=== PATIENT | female | born 1950 | race Caucasian/White ===

== ENCOUNTER 2018-07-22 16:46 | Inpatient (IN) | payer MEDICARE ==
[~2018-07-22 16:46] MED LIST: Dexamethasone 20 MG/5 ML VIAL ONE; Glycopyrrolate 0.2 MG/ML 5 ML SYRINGE ONE; Lidocaine 1% PF 5 ML VIAL ONE; Ondansetron PF 4 MG/2 ML Vial ONE; PHENYLEPHRINE-NS 100 MCG/ML 10 ML SYRINGE ONE; PROPOFOL 200 MG/20 ML VIAL ONE; Succinylcholine Chloride 20 MG/ML 10 ml SYRINGE FS ONE; ePHEDrine/0.9% NaCl/PF SYRINGE 50 mg/10 ml ONE
[2018-07-22] MEDS ORDERED: Fentanyl 100 MCG/2 ML VIAL ONE (17:43)
[2018-07-22] MEDS ORDERED: cefOXitin 2 GM VIAL ONE (17:54)
[2018-07-22] MEDS ORDERED: Sodium Chloride 0.9% 100 ML ONE (17:54)
[2018-07-22] MEDS ORDERED: Morphine 4 MG/ML VIAL ONE (17:54)
[2018-07-22] MEDS ORDERED: Bupivacaine/Epinephrine 0.25% 30 ML VIAL ONE (18:03)
[2018-07-22] MEDS ORDERED: Bupivacaine PF 0.5% 30 ML VIAL ONE (18:03)
[2018-07-22] MEDS ORDERED: Promethazine HCl 25 MG/ML VIAL SLOW IVP PRN (20:16)
[2018-07-22] MEDS ORDERED: Ondansetron HCl/PF 4 MG/2 ML Vial IVP PRN (20:16)
[2018-07-22] MEDS ORDERED: Promethazine HCl 25 MG/ML VIAL IM PRN (20:16)
[2018-07-22] MEDS ORDERED: Morphine 2 MG/ML SYRINGE SLOW IVP PRN (20:30)
[2018-07-22] MEDS ORDERED: Morphine 4 MG/ML VIAL SLOW IVP PRN (20:33)
--- NOTE | 2018-07-22 20:33 | HP ---
CHIEF COMPLAINT: Abdominal pain. HISTORY OF PRESENT ILLNESS: Ms. Lew is a 68-year-old woman, who presented to her local emergency room with a 2-day history of abdominal pain, nausea, and vomiting. She has had low-grade fevers up to 99.8 and has not had a bowel movement for 3 days. She does suffer from chronic constipation. She states that her last bowel movement 3 days ago was abnormal and that it was loose and runny. She underwent a CT scan, which showed an incarcerated left inguinal hernia with high-grade small bowel obstruction and was transferred to [place] for further care. She states that she has not really had any pain in her groin, but she can tell that there is something there. PAST MEDICAL HISTORY: None. PAST SURGICAL HISTORY: Splenectomy status post trauma, laparoscopic cholecystectomy, and tubal ligation. She has also had bilateral knee and shoulder surgery as well as carpal tunnel. SOCIAL HISTORY: The patient is a former smoker having quit 4 years ago. She does not drink or use illicit drugs. FAMILY HISTORY: Breast cancer in 2 cousins and Alzheimer's. MEDICATIONS: 1. Protonix. 2. Prozac. 3. Adderall. 4. Hyal-dxs-takcnoo allergy medication. ALLERGIES: SHE HAS NO KNOWN DRUGS ALLERGIES. REVIEW OF SYSTEMS: A 10-system review of systems was negative except as per HPI. PHYSICAL EXAMINATION: VITAL SIGNS: Currently afebrile with normal vital signs. GENERAL: Reveals a thin woman, in no acute distress. She is not flushed or toxic in appearance. She is not jaundiced or icteric. HEENT: Unremarkable. NECK: Supple without lymphadenopathy or thyroid nodules. HEART: Regular rate and rhythm without murmurs, rubs, or gallops. LUNGS: Clear to auscultation bilaterally. ABDOMEN: Soft, but diffusely tender and slightly distended with decreased bowel sounds. She has a firm left inguinal hernia, which is slightly tender; attempts to reduce it at the bedside were not successful. Healed upper midline incision and laparoscopic incisions. No other abdominal hernias or possible masses. EXTREMITIES: Warm and well perfused without edema. NEUROLOGIC: No focal deficits. PSYCHIATRIC: Alert, oriented, and appropriate. LABORATORY DATA: White count is mildly elevated at 12.1, hematocrit 46, platelets 359. Electrolytes are unremarkable. BUN and creatinine are mildly elevated at 33 and 1.22. LFTs and troponins are normal. CT images are reviewed, and I agree with the written report. The patient appears to have a loop of small intestine in the left inguinal canal with decompression past that point. ASSESSMENT: Incarcerated left inguinal hernia containing small bowel resulting in obstruction. I was unable to reduce this at the bedside, so we will take her emergently to the operating room tonight for left inguinal hernia repair, possible small bowel resection, possible laparotomy or laparoscopy if the viability of the bowel is in question. The procedure and its inherent risks were discussed with the patient and her family. These risks include, but are not limited to, bleeding, infection, risks of anesthesia, damage to nearby structures including blood vessels, nerves, and intestine. If a small bowel resection is performed, then anastomotic leak is also possible, although rare. If the bowel appears viable and is reduced, then stricture at a later date is a possibility if the damage is more extensive than recognized. The patient understands the inherent risks of the surgery and wishes to proceed. Broad-spectrum antibiotics covering bowel es have been ordered, and she has been posted emergently for the operating room. All of her questions were answered. Job ID: [id number] [facility]
[2018-07-22] MEDS ORDERED: Acetaminophen 1,000 MG in Premix Bag 1 BAG IVPB PRN (20:35)
[2018-07-22] MEDS ORDERED: Ketorolac Tromethamine 30 MG/ML VIAL IVP PRN (20:37)
[2018-07-22] MEDS ORDERED: Ondansetron PF 4 MG/2 ML Vial SLOW IVP PRN (20:39)
[2018-07-22] MEDS: D5 1/2 NS w/20 mEq KCL 1,000 ML IV SCH (21:16)
[2018-07-22] MEDS ORDERED: Chloraseptic Spray 180 ml Bottle PO PRN (21:36)
[2018-07-22] MEDS: Pantoprazole 40 MG VIAL IVP SCH (21:44)
[2018-07-23 01:41] VITALS: BMI 23.6
[2018-07-23] MEDS ORDERED: cefOXitin Sodium/Dextrose,Iso 1 GM in Premix Bag 1 BAG IVPB SCH (02:00)
[2018-07-23] MEDS: cefOXitin Sodium/Dextrose,Iso 1 GM in Premix Bag 1 BAG IVPB SCH ×2 (04:48→11:50)
[2018-07-23] MEDS: D5 1/2 NS w/20 mEq KCL 1,000 ML IV SCH ×2 (05:49→15:45)
[2018-07-23 06:12] LABS: Anion Gap 12 mmol/L (10-20); BUN (Urea Nitrogen) 22 mg/dL (9.8-20.1); Calc. Creatinine Clearance 49 mL/min (70-130); Calcium 8.3 mg/dL (7.8-10.44); Carbon Dioxide 27 mmol/L (23-31); Chloride 98 mmol/L (98-107); Estimated GFR-MDRD 48; Glucose 109 mg/dL (80-115); Potassium 4.1 mmol/L (3.5-5.1); Sodium 133 mmol/L (136-145)
[2018-07-23 07:12] LABS: #Lymphocytes 1.8 thou/uL (1.20-3.40); #Monocytes 1.6 thou/uL (0.11-0.59); #Neutrophils 8.9 thou/uL (1.40-6.50); %Basophils 0.1 % (0.0-1.0); %Eosinophils 0.1 % (0.0-10.0); %Lymphocytes 14.9 % (21.0-51.0); %Monocytes 12.6 % (0.0-10.0); %Neutrophils 72.2 % (42.0-75.0); Hemoglobin 12.2 g/dL (12.0-16.0); Mean Corpuscular HGB CONC 33.3 g/dL (32.0-36.0); Mean Corpuscular Volume 99.1 fL (78.0-98.0); Mean Platelet Volume 6.1 fL (7.4-10.4); Platelet Count 320 thou/uL (130-400); RBC Distribution Width 11.6 % (11.5-14.5); Red Blood Cell (RBC) Count 3.72 mill/uL (4.20-5.40); White Blood Cell (WBC) Count 12.3 thou/uL (4.8-10.8)
--- NOTE | 2018-07-23 18:58 | PDOC.OP ---
Operative Note - Operative Note Operative Note: PROCEDURE: Inguinal hernia repair SURGEON: Zaki Euceda M.D. DATE OF PROCEDURE: 07/22/2018 PREOPERATIVE DIAGNOSIS: Left inguinal hernia,incarcerated and obstructing POSTOPERATIVE DIAGNOSIS: Left femoral hernia, incarcerated an obstructing HISTORY: Patient with a 3 day history of abdominal pain and vomiting and low- grade fevers. CT revealed a left inguinal hernia with obstruction at that point. This was unable to be reduced at the bedside and recommendation was made to proceed with emergent repair, with possible resection of the intestine if it was nonviable. FINDINGS: Incarcerated left femoral hernia with viable bowel able to be reduced through the defect. DESCRIPTION OF PROCEDURE: After informed consent was obtained and appropriate preoperative antibiotics were administered, the patient was taken to the operating room, placed in the supine position and general endotracheal anesthesia was administered. The inguinal area was prepped and draped in the standard sterile fashion and local anesthesia was infused to the skin and subcutaneous tissues overlying the inguinal canal. An oblique skin incision was made in the direction of the skin crease. Dissection was carried down to the external oblique aponeurosis but the hernia was found to be inferior to the inguinal ligament. The hernia was dissected free circumferentially to its base. The hernia sac was opened and clear serous fluid without any odor was suctioned out. There was a loop of small bowel in the hernia. This was able to be reduced under direct vision into the abdominal cavity. It appeared entirely viable. The hernia sac was then resected and the base of the hernia sac was encircled with a pursestring 3-0 Vicryl suture. The pursestring suture was secured and the base of the hernia sac reduced through the defect. The Perfix plug was then placed into the femoral hernia defect and was tacked down to the surrounding tissues in a couple of locations. The operative site was irrigated and hemostasis verified. Local anesthesia was infused into the surrounding subcutaneous tissues. Julien's fascia was reapproximated with 3-0 Monocryl sutures and the skin was closed with 4-0 subcuticular Monocryl sutures. Dermabond dressings were placed. The patient was extubated and taken to the recovery room in good condition. Estimated blood loss was minimal. There were no complications. Specimen is femoral hernia sac
[2018-07-23] MEDS: Pantoprazole 40 MG VIAL IVP SCH (21:16)
[2018-07-24] MEDS: D5 1/2 NS w/20 mEq KCL 1,000 ML IV SCH ×2 (01:24→10:41)
[2018-07-24 06:13] LABS: #Eosinphils 0.1 thou/uL (0.0-0.7); #Monocytes 1.1 thou/uL (0.11-0.59); %Basophils 0.4 % (0.0-1.0); %Lymphocytes 28.1 % (21.0-51.0); %Monocytes 14.7 % (0.0-10.0); %Neutrophils 55.8 % (42.0-75.0); Hemoglobin 12.3 g/dL (12.0-16.0); Mean Corpuscular HGB CONC 33.1 g/dL (32.0-36.0); Mean Corpuscular Volume 99.5 fL (78.0-98.0); Mean Platelet Volume 6.2 fL (7.4-10.4); Platelet Count 306 thou/uL (130-400); RBC Distribution Width 11.7 % (11.5-14.5); Red Blood Cell (RBC) Count 3.72 mill/uL (4.20-5.40); White Blood Cell (WBC) Count 7.2 thou/uL (4.8-10.8)
[2018-07-24 06:24] LABS: Anion Gap 9 mmol/L (10-20); BUN (Urea Nitrogen) 10 mg/dL (9.8-20.1); Calc. Creatinine Clearance 68 mL/min (70-130); Calcium 8.3 mg/dL (7.8-10.44); Carbon Dioxide 25 mmol/L (23-31); Chloride 103 mmol/L (98-107); Estimated GFR-MDRD 70; Glucose 99 mg/dL (80-115); Potassium 4.3 mmol/L (3.5-5.1); Sodium 133 mmol/L (136-145)
[2018-07-24] MEDS ORDERED: Prevnar 13-Val Conj/PF 0.5 ML SYRINGE IM ONE ×2 (09:00→17:00)
[2018-07-24 16:27] VITALS: BP 119/60; TEMP 98.2
== END 2018-07-24 17:43 | disposition home or self-care (01) | DRG 351 ==
LOC: ERS 16:46 → SDC/OP 18:56 → SURG B 21:03
PROVIDERS: ADMIT Surgery; ATTEND Surgery
PROC: 0YQ60ZZ Repair Left Inguinal Region, Open Approach (ICD-10-PCS; principal; 2018-07-22)
DX: K40.30 Unilateral inguinal hernia, with obstruction, without gangrene, not specified as recurrent (principal); K56.609 Unspecified intestinal obstruction, unspecified as to partial versus complete obstruction
CPT/HCPCS: 36415; 80048; 85025; 88302; 90471; 90662; 90670; 96374; C1781; C9113; G0008; G0009; J0694; J1100; J2001; J2270; J2405; J2704; J3010; J7050; S0020

== ENCOUNTER 2019-11-06 07:55 | Outpatient (CLI) | payer MEDICARE ==
--- NOTE | 2019-11-06 09:09 | CT ---
CT PULMONARY LUNG SCAN: HISTORY: The patient is a former smoker of 40 years, 2 pack a day smoker, quit in 2016. COMPARISON: None. FINDINGS: There are changes of centrilobular emphysema present. A pleural-based nodular density is seen in the left lower lobe axial image 143 measures 4 mm. There is some parenchymal scarring in the right midd le lobe and lingula. Mediastinal structures show a normal-sized thoracic aorta. Post cholecystectomy changes are incident ally noted. IMPRESSION: Lung RADS category 2 - benign features. Routine annual low-dose screening exam is recommended for as sessment. POS: C
== END 2019-11-06 07:56 | disposition home or self-care (01) ==
LOC: CT 07:55
PROVIDERS: ATTEND Student in an Organized Health Care Education/Training Program
DX: Z12.2 Encounter for screening for malignant neoplasm of respiratory organs (principal); Z87.891 Personal history of nicotine dependence
CPT/HCPCS: G0297

== ENCOUNTER 2019-11-09 10:04 | Outpatient (CLI) | payer MEDICARE ==
--- NOTE | 2019-11-09 10:29 | BD ---
EXAM: DEXA bone density examination HISTORY: 69-year-old postmenopausal female for screening COMPARISON: None FINDINGS: L1--bone mineral density 0.962 g/sq cm; T score -0.3 L2--bone mineral density 1.040 g/sq cm; T score 0.1 L3--bone mineral density 1.022 g/sq cm; T score -0.6 L4--bone mineral density 0.909 g/sq cm; T score -1.4 Total L1-L4--bone mineral density 0.977 g/sq cm; T score -0.6 Left femoral neck--bone mineral density0.774; T score -0.7 Total proximal left femur--bone mineral density 0.888; T score -0.4 IMPRESSION: Normal bone density.
--- NOTE | 2019-11-09 11:42 | MMO ---
Bilateral MAMMO Bilat Screen [facility]. CLINICAL HISTORY: Patient is 69 years old and is seen for screening. The patient has the following family history of breast cancer: cousin female, malignant (generic), X2. The patient has no personal history of cancer. VIEWS: The views performed were: bilateral craniocaudal with tomosynthesis and bilateral mediolateral oblique with tomosynthesis. FILMS COMPARED: The present examination has been compared to a prior imaging study performed at [facility] on 05/01/2008. This study has been interpreted with the assistance of computer-aided detection. MAMMOGRAM FINDINGS: There are scattered fibroglandular densities. Benign calcifications are noted bilaterally. There are no suspicious masses, suspicious calcifications, or new areas of architectural distortion. IMPRESSION: THERE IS NO MAMMOGRAPHIC EVIDENCE OF MALIGNANCY. A ROUTINE FOLLOW-UP MAMMOGRAM IN 1 YEAR IS RECOMMENDED. THE RESULTS OF THIS EXAM WERE SENT TO THE PATIENT. ACR BI-RADS Category 2 - Benign finding MAMMOGRAPHY NOTE: 1. A negative mammogram report should not delay a biopsy if a dominant of clinically suspicious mass is present. 2. Approximately 10% to 15% of breast cancers are not detected by mammography. 3. Adenosis and dense breasts may obscure an underlying neoplasm. Reported by: KATINA MONTAGUE MD Electonically Signed: [id number]
== END 2019-11-09 10:05 | disposition home or self-care (01) ==
LOC: BICMAMMO 10:04
PROVIDERS: ATTEND Student in an Organized Health Care Education/Training Program
DX: Z12.31 Encounter for screening mammogram for malignant neoplasm of breast (principal); Z13.820 Encounter for screening for osteoporosis; Z80.3 Family history of malignant neoplasm of breast
CPT/HCPCS: 77063; 77067; 77080

== ENCOUNTER 2020-12-16 12:59 | Outpatient (CLI) | payer MEDICARE | END 2020-12-16 13:00 | disposition home or self-care (01) | LOC: BICMAMMO 12:59 | PROVIDERS: ATTEND Student in an Organized Health Care Education/Training Program | DX: Z12.31 Encounter for screening mammogram for malignant neoplasm of breast (principal); Z80.3 Family history of malignant neoplasm of breast | CPT/HCPCS: 77063; 77067 ==

== ENCOUNTER 2020-12-16 13:25 | Outpatient (CLI) | payer MEDICARE | END 2020-12-16 13:26 | disposition home or self-care (01) | LOC: BICCT 13:25 | PROVIDERS: ATTEND Student in an Organized Health Care Education/Training Program | DX: Z12.2 Encounter for screening for malignant neoplasm of respiratory organs (principal); Z87.891 Personal history of nicotine dependence | CPT/HCPCS: 71271 ==

== ENCOUNTER 2021-12-23 08:36 | Outpatient (CLI) | payer MEDICARE | END 2021-12-23 08:37 | disposition home or self-care (01) | LOC: BICMAMMO 08:36 | PROVIDERS: ATTEND Student in an Organized Health Care Education/Training Program | DX: Z12.31 Encounter for screening mammogram for malignant neoplasm of breast (principal); Z13.820 Encounter for screening for osteoporosis; Z78.0 Asymptomatic menopausal state; Z12.2 Encounter for screening for malignant neoplasm of respiratory organs; Z87.891 Personal history of nicotine dependence; J43.9 Emphysema, unspecified; S22.31XD Fracture of one rib, right side, subsequent encounter for fracture with routine healing; Z80.3 Family history of malignant neoplasm of breast | CPT/HCPCS: 71271; 77063; 77067; 77080 ==

== ENCOUNTER 2023-02-05 12:09 | Outpatient (CLI) | payer MEDICARE | END 2023-02-05 12:10 | disposition home or self-care (01) | LOC: BICMAMMO 12:09 | PROVIDERS: ATTEND Student in an Organized Health Care Education/Training Program | DX: Z12.31 Encounter for screening mammogram for malignant neoplasm of breast (principal); Z80.3 Family history of malignant neoplasm of breast | CPT/HCPCS: 77063; 77067 ==